=== PATIENT | male | born 1965 | race Two or more races ===

== ENCOUNTER 2021-04-22 13:07 | Emergency (ER) | payer SELFPAY ==
[~2021-04-22] VITALS: Ht 170.2 cm; Wt 77.0 kg
[2021-04-22] MEDS ORDERED: LORAZEPAM 2MG/ML CPJ IM ONE ×2 (17:15→19:00)
[2021-04-22] MEDS ORDERED: HALOPERIDOL LACTATE 5MG/ML VIAL IM ONE (19:00)
[2021-04-22 23:57] LABS: BASOPHILS % 1.1 % (0.0-2.0); EOSINOPHILS % 0.8 % (0.0-5.0); LYMPHOCYTES % 22.9 % (20.0-50.0); MEAN CORPUSCULAR HEMOGLOBIN 31.9 pg (28.0-32.0); MEAN CORPUSCULAR VOLUME 93.5 fL (80.0-94.0); MEAN PLATELET VOLUME 8.8 fl (7.4-10.4); MONOCYTES % 13.9 % (2.0-8.0); NEUTROPHILS % 61.3 % (40.0-76.0); PLATELET 275 x1000/uL (130-400); RED BLOOD CELL COUNT 4.39 mill/uL (4.7-6.1); RED CELL DISTRIBUTION WIDTH 14.2 % (11.6-14.6)
[2021-04-23 00:05] LABS: CHLORIDE 110 mEq/L (98-107)
[2021-04-23 00:09] LABS: ETHANOL BLOOD < 10 mg/dL
[2021-04-23 01:30] VITALS: BP 134/72
== END 2021-04-23 02:54 | disposition left against medical advice (07) ==
LOC: ER 16:13
DX: F23 Brief psychotic disorder (principal)
CPT/HCPCS: 36415; 80053; 80307; 80320; 80329; 85025; 96372; 99285; J1630; J2060; Z7610; G0480